=== PATIENT | female | born 1985 | race Caucasian/White ===

== ENCOUNTER 2018-11-27 19:16 | Emergency (ER) | payer SELFPAY ==
[~2018-11-27] VITALS: Ht 157.5 cm; Wt 63.6 kg
[2018-11-27] MEDS ORDERED: SULFAMETHOX/TRIMETH DS 800-160 MG/TABLET PO ONE (20:30)
[2018-11-27] MEDS ORDERED: CEPHALEXIN MONOHYDRATE 500 MG CAPSULE PO ONE (20:30)
[2018-11-27 20:42] VITALS: BP 132/68
== END 2018-11-27 20:48 | disposition home or self-care (01) ==
LOC: EMS 19:18
DX: L03.317 Cellulitis of buttock (principal); F11.90 Opioid use, unspecified, uncomplicated; F15.90 Other stimulant use, unspecified, uncomplicated; F17.210 Nicotine dependence, cigarettes, uncomplicated
CPT/HCPCS: 99406

== ENCOUNTER 2021-09-10 08:33 | Emergency (ER) | payer SELFPAY ==
[~2021-09-10] VITALS: Ht 162.6 cm; Wt 77.3 kg
[2021-09-10 09:38] VITALS: BP 130/90
== END 2021-09-10 10:00 | disposition left against medical advice (07) ==
LOC: EMS 08:33 → EDUNIT# 08:33 → EMS 10:00
DX: R55 Syncope and collapse (principal); F11.988 Opioid use, unspecified with other opioid-induced disorder; F15.90 Other stimulant use, unspecified, uncomplicated; F17.210 Nicotine dependence, cigarettes, uncomplicated
CPT/HCPCS: 99283; Z7502